=== PATIENT | male | born 1960 ===

== ENCOUNTER → 2017-09-18 | Outpatient (CLI) | payer OTHER ==
[~2017-09-18] MED LIST: MAXITROL EYE O3.5 GM OP; PRILOSEC20 MG PO; ULTRACET PO
== END | disposition home or self-care (01) ==
LOC: PPHC 10:18
DX: B34.9 Viral infection, unspecified (principal)

== ENCOUNTER 2017-10-19 10:49 | Emergency (ER) | payer OTHER ==
[~2017-10-19] VITALS: Ht 160 cm; Wt 81.6 kg
[2017-10-19] MEDS ORDERED: PROTONIX40 MG PO (15:19)
== END 2017-10-19 15:55 | disposition home or self-care (01) ==
LOC: ER 10:49
DX: K29.60 Other gastritis without bleeding (principal)

== ENCOUNTER 2018-03-21 11:11 | Outpatient (CLI) | payer OTHER ==
[~2018-03-21 11:11] MED LIST changes: +PROTONIX40 MG PO
== END 2018-03-21 14:14 | disposition home or self-care (01) ==
LOC: LAB 11:11
DX: R07.89 Other chest pain (principal)

== ENCOUNTER 2019-07-21 09:15 | Outpatient (CLI) | payer OTHER | END 2019-07-21 15:00 | disposition home or self-care (01) | LOC: LAB 09:15 | DX: J11.1 Influenza due to unidentified influenza virus with other respiratory manifestations (principal) ==

== ENCOUNTER 2019-07-23 07:56 | Emergency (ER) | payer OTHER ==
[~2019-07-23] VITALS: Ht 160 cm; Wt 81.6 kg
[2019-07-23] MEDS ORDERED: BUTALBIT-ACETA1 EACH PO (13:53)
== END 2019-07-23 14:00 ==
LOC: ER 07:56
DX: G43.909 Migraine, unspecified, not intractable, without status migrainosus (principal); J32.8 Other chronic sinusitis; B34.9 Viral infection, unspecified

== ENCOUNTER → 2020-01-06 14:37 | Outpatient (CLI) | payer OTHER ==
[~2020-01-06 14:37] MED LIST changes: +BUTALBIT-ACETA1 EACH PO
== END | disposition home or self-care (01) ==
LOC: CERTIFICAD 14:37
PROVIDERS: ATTEND Family Medicine
DX: Z11.1 Encounter for screening for respiratory tuberculosis (principal)

== ENCOUNTER 2020-02-06 17:20 | Outpatient (CLI) | payer OTHER | END 2020-02-06 18:00 | disposition home or self-care (01) | LOC: PPH VACUNA 17:20 | DX: Z23 Encounter for immunization (principal) ==

== ENCOUNTER 2020-05-06 09:05 | Outpatient (CLI) | payer OTHER | END 2020-05-06 18:50 | disposition home or self-care (01) | LOC: PPH VACUNA 09:05 | DX: Z23 Encounter for immunization (principal) ==

== ENCOUNTER 2021-02-14 08:00 | Outpatient (CLI) | payer OTHER | END 2021-02-14 08:30 | disposition home or self-care (01) | LOC: PPH VACUNA 08:00 | PROVIDERS: ATTEND Emergency Medicine Pediatric Emergency Medicine | DX: Z23 Encounter for immunization (principal) ==

== ENCOUNTER 2021-10-27 08:49 | Outpatient (CLI) | payer OTHER | END 2021-10-27 08:53 | disposition home or self-care (01) | LOC: LAB 08:49 → EDBD 08:49 → LAB 08:53 | PROVIDERS: ATTEND General Practice | DX: R07.0 Pain in throat (principal) ==

== ENCOUNTER 2021-10-27 09:04 | Outpatient (CLI) | payer OTHER | END 2021-10-27 09:14 | disposition home or self-care (01) | LOC: PPH VACUNA 09:04 | PROVIDERS: ATTEND Emergency Medicine Pediatric Emergency Medicine | DX: Z23 Encounter for immunization (principal) ==